=== PATIENT | female | born 1960 | race Caucasian/White ===

== ENCOUNTER 2016-08-21 22:13 | Emergency (ER) | payer OTHER ==
[2016-08-21 19:31] LABS: ASCORBIC ACID (UR NOT ORDER) NEG (NEG); BILIRUBIN, URINE NEGATIVE (NEG); ER URINALYSIS TAT 0 Hrs 11 Mins; KETONE, URINE TRACE MG/DL (NEG); LEUKOCYTE ESTERASE(NOT OR NEG (NEG); NITRITE (URINE) NEG (NEG); WBC (NOT ORDERED) (RFLEX) 3 (0-5)
[2016-08-21 19:39] LABS: BASOPHILS 0.1 %; BASOPHILS ABSOLUTE 0.01 10/3/uL (0.0-0.16); EOSINOPHILS 1.2 %; EOSINOPHILS ABSOLUTE 0.09 10/3/uL (0.0-0.53); ER CBC TAT 0 Hrs 19 Mins; HEMATOCRIT 37.7 % (36.0-48.0); HEMOGLOBIN 12.8 g/dL (12.0-16.0); IMMATURE GRANULOCYTES 0.3 %; IMMATURE GRANULOCYTES ABSOLUTE 0.02 10/3/uL (0.0-0.11); LYMPHOCYTES 37.9 %; LYMPHOCYTES ABSOLUTE 2.83 10/3/uL (0.67-4.30); MANUAL DIFF NO %; MEAN CORPUSCULAR HEMOGLOB 32.9 pg (26.0-34.0); MEAN CORPUSCULAR VOLUME 96.9 fL (80-100); MEAN PLATELET VOLUME 8.9 fL (9.2-13.0); MONOCYTES 7.2 %; MONOCYTES ABSOLUTE 0.54 10/3/uL (0.21-1.20); NEUTROPHILS 53.3 %; NEUTROPHILS ABSOLUTE 3.97 10/3/uL (2.02-8.40); PLATELET COUNT 226 10/3/uL (150-400); RBC DISTRIBUTION WIDTH 12.9 % (12.0-16.0); RED CELL COUNT 3.89 10/6/uL (4.0-5.6); WHITE BLOOD CELLS 7.5 10/3/uL (4.5-10.5)
[2016-08-21 19:43] LABS: A/G RATIO 0.7 (0.7-1.9); ALBUMIN 2.8 G/DL (3.5-5.0); ALKALINE PHOSPHATASE 79 U/L (45-117); BUN (BLOOD UREA NITROGEN) 11 MG/DL (6-23); CALCIUM, SERUM 8.3 MG/DL (8.5-10.4); CHLORIDE, SERUM 107 MMOL/L (96-112); CO2 (CARBON DIOXIDE) 28 MMOL/L (24-34); CREATININE 0.72 MG/DL (0.55-1.02); GFR AFRICAN AMERICAN 110 ML/MIN (>=60); GFR NON AFRICAN AMERICAN 95 ML/MIN (>=60); GLUCOSE, SERUM 84 MG/DL (60-99); POTASSIUM, SERUM 4.1 MMOL/L (3.5-5.3); SGOT(AST) 9 U/L (5-40); SGPT(ALT) 9 U/L (5-65); SODIUM, SERUM 144 MMOL/L (135-148); TOTAL BILIRUBIN 0.4 MG/DL (0-1.2); TOTAL PROTEIN 6.8 G/DL (6.0-8.5)
[~2016-08-21 22:13] MED LIST: ASAB PO; ATV1 PO; LAM250 PO; NORCO1 TA2 PO; ORAZINC110 MG PO; PCET PO; VITC500 PO; ZYRTEC ALLGY10 MG PO; ZYVOXPO PO
[2016-09-25] MEDS ORDERED: CLARIT10 PO (16:19)
== END 2016-08-21 22:57 | disposition home or self-care (01) ==
LOC: ER 22:13
PROVIDERS: Emergency Medicine
DX: G89.29 Other chronic pain (principal); R10.9 Unspecified abdominal pain; Z87.891 Personal history of nicotine dependence; Z88.2 Allergy status to sulfonamides; Z79.82 Long term (current) use of aspirin; Z79.899 Other long term (current) drug therapy
CPT/HCPCS: 80053; 81001; 83690; 85025; 99284

== ENCOUNTER 2016-10-05 11:11 | Inpatient (IN) | payer OTHER ==
--- NOTE | ~2016-10-05 | CN ---
Consultation Report [facility] [address] [place]. [address] NAME: RON LAND : 62 STATUS : DIS IN PAT#: [id number] AGE: 56 ADM/REG DATE : 10/05/16 MR#: [id number] REPORT SERV DATE: 10/14/16 DICTATED BY: BILLY NORRIS DATE: 10/14/16 REPORT STATUS : Draft TRANSCRIBED BY: MODChucho DATE: 10/14/16 GI CONSULTATION NOTE DATE OF CONSULTATION: 10/13/2016 REASON FOR CONSULTATION: Small bowel obstruction. HISTORY OF PRESENT ILLNESS: Ms. Land is a pleasant 56-year-old female with a history of Crohn disease, who is postop day #8 status post exploratory laparotomy with right colon and terminal ileal resection by Dr. Mejias. GI is consulted for followup care as she usually sees Dr. Shelton in our [facility] for her Crohn's management. She is slowly, but surely recovering from her surgery. She is tolerating her diet fairly well and her pain is better controlled as per the patient. With regard to her Crohn's diagnosis, she has not been on any medical therapy for her Crohn disease as she reports that she has had no flare-ups since her diagnosis and had not required any medication. PAST MEDICAL HISTORY: Crohn disease, basal cell carcinoma, ovarian cyst, ventral hernia. PAST SURGICAL HISTORY: Ex lap with right colon and TI resection; ventral hernia repair in 2013; I and D, abdominal wall abscess, 2014. SOCIAL HISTORY: Former tobacco use, quit in 2013. Alcohol use, approximately 12 beers per week. Denies any drug use. FAMILY HISTORY: Coronary artery disease, liver disease, and stroke. MEDICATIONS: Reviewed. ALLERGIES: REVIEWED. PHYSICAL EXAMINATION: VITAL SIGNS: The patient is afebrile. Her vital signs are stable. GENERAL: The patient is awake, alert, and oriented x3. Well developed, well nourished, in no acute distress. HEENT: Atraumatic, normocephalic. Anicteric. Mucous membranes moist. CARDIAC: S1, S2. CHEST: Clear. ABDOMEN: Soft, nontender to palpation. She has a vertical incision with staple line. Incision appears clean, dry, and intact without any erythema or calor associated. Bowel sounds are normoactive. LABORATORY DATA: WBC is 10.8, hemoglobin 9.5, hematocrit 29, platelets 261. Sodium 138, potassium 4.2, chloride 101, BUN 6, creatinine 0.48, glucose 89. Consultation Report [facility] [id number] [place]. [address] NAME: RON LAND : 62 STATUS : DIS IN PAT#: [id number] AGE: 56 ADM/REG DATE : 10/05/16 MR#: [id number] REPORT SERV DATE: 10/14/16 DICTATED BY: BILLY NORRIS DATE: 10/14/16 REPORT STATUS : Draft TRANSCRIBED BY: MODL DATE: 10/14/16 IMPRESSION AND PLAN: Crohn disease. The patient is status post exploratory laparotomy with right colon and terminal ileal resection postop day #8, recovering slowly, able to tolerate a diet. She does admit to flatus and having bowel movements. I have taken the liberty of ordering a viral hepatitis panel as well as QuantiFERON Gold in preparation for perhaps starting some anti-TNF therapy/biologic therapy for induction and maintenance of remission. I reviewed the above plan with the patient and her . Follow up with Dr. Shelton in one to two weeks in clinic. LARA/LESLEY Billy Norris MD / [id number] CC: Denise Brooks M.D.
--- NOTE | ~2016-10-05 | DS ---
Discharge Summary [facility] [address] [place]. [address] NAME: RON FLYNN : 62 STATUS : DIS IN PAT#: [id number] AGE: 56 ADM/REG DATE : 10/05/16 MR#: [id number] REPORT SERV DATE: 10/24/16 DICTATED BY: COLIN MEJIAS DATE: 10/23/16 REPORT STATUS : Draft TRANSCRIBED BY: MODL DATE: 10/23/16 Data Collection from hospitalization DISCHARGE DIAGNOSES: 1. Small bowel obstruction secondary to Crohn's stricture. 2. Ventral hernia. 3. Former smoker. 4. History of basal cell carcinoma. CONSULTATIONS: Shara Ann MD PROCEDURES PERFORMED: 1. Exploratory laparotomy, extended ileocolic resection, extensive adhesiolysis, open ventral hernia repair on 10/06/2016. 2. CT scan of the abdomen and pelvis without contrast on 10/05/2016. PATHOLOGY: Soft tissue, abdomen, ventral hernia repair - hernia sac. Small bowel and cecum resection - active Crohn disease with multiple ulcers, serosal adhesions and stricture formation, intact anastomosis. No granulomas, dysplasia, or carcinoma. Cecum noninvolved, unremarkable appendix, enlarged benign reactive lymph nodes. Lymph nodes, small bowel mesenteric biopsy - benign reactive lymph nodes. MEDICATIONS: Tylenol 1000 mg twice a day as needed, Colace 100 mg daily, Claritin 10 mg daily as needed, Ativan 1 mg at bedtime, Zofran 4 mg every six hours as needed, Percocet 5/325 one tablet every four hours as needed, and MiraLAX powder one packet daily. CONDITION AT DISCHARGE: Stable. DISPOSITION: The patient was discharged home on a full liquid diet with activities as instructed. She would follow up with Dr. Bobby Shelton on 10/28/[address] Colin Mejias on 10/22/2016. HOSPITAL COURSE: This is a 56-year-old female, who I have followed for some time with what appeared to be an intermittent small bowel obstruction. This appeared to be secondary to Crohn's. Treatment options were discussed and it was elected to proceed with surgical intervention. She was admitted to the hospital at this time for further evaluation and treatment. Upon admission, she was taken to the operating room where she underwent the above-mentioned procedure. She tolerated this well, and there were no complications. On postop day #1, she was awake and alert. She said she felt well. Her pain was controlled. NG tube remained in place. We were awaiting bowel function. We were going to attempt clamping the NG tube. Ativan was going to be restarted at bedtime. On 10/09/2016, we encouraged her to use incentive spirometry and mobilize. Pathology had revealed active Crohn's, but no cancer. She said she had slept much better. On 10/10/2016, she had no nausea or vomiting. She did have a bowel movement. IV fluids were stopped. She did complain of some crampy abdominal pain. On 10/12/2016, she still had Discharge Summary [facility] [id number] [place]. [address] NAME: RON FLYNN : 62 STATUS : DIS IN [facility]#: [id number] AGE: 56 ADM/REG DATE : 10/05/16 MR#: [id number] REPORT SERV DATE: 10/24/16 DICTATED BY: COLIN MEJIAS DATE: 10/23/16 REPORT STATUS : Draft TRANSCRIBED BY: LESLEY DATE: 10/23/16 some abdominal cramping. She was slowly improving. Her diet was going to be advanced. The next day, she was seen by Dr. Shara Ann regarding small bowel obstruction. With regard to her Crohn's diagnosis, she has not been on any medical therapy for her Crohn's disease as she reports that she has had no flare ups since her diagnosis and has not required any medications. White blood cell count was 10.8. Creatinine was 0.48. She was recovering slowly from her surgical intervention. She was tolerating her diet. She was passing flatus and having bowel movements. A viral hepatitis panel was ordered as well as a QuantiFERON Gold in preparation for her perhaps starting some anti-TNF therapy/biologic therapy for induction and maintenance of remission. She would follow up with Dr. Shelton in one to two weeks following discharge. Discharge planning was performed. On 10/14/2016, pain was under better control. She was tolerating her diet. She was voiding and having bowel movements. She was ambulatory. Discharge instructions were given. Due to her improved and stable condition, she was discharged home with the above-stated instructions. Information collected by: Lisa Denney I submit the above information as my discharge summary. TG/MODL Colin Mejias M.D. / [id number] CC: Denise Brooks M.D. Camille Sommer, MD
--- NOTE | ~2016-10-05 | OP ---
Record Of Operation [facility] [address] [place]. [address] NAME: RON LAND : 62 STATUS : ADM IN [facility]#: [id number] AGE: 56 ADM/REG DATE : 10/05/16 MR#: [id number] REPORT SERV DATE: 10/06/16 DICTATED BY: COLIN MEJIAS DATE: 10/06/16 REPORT STATUS : Draft TRANSCRIBED BY: MODL DATE: 10/06/16 DATE OF PROCEDURE: 10/06/2016 PREOPERATIVE DIAGNOSES: 1. Small-bowel obstruction. 2. Ventral hernia. POSTOPERATIVE DIAGNOSES: 1. Small-bowel obstruction secondary to Crohn's stricture. 2. Ventral hernia. OPERATIONS PERFORMED: 1. Exploratory laparotomy. 2. Extended ileocolic resection. 3. Extensive adhesiolysis. 4. Open ventral hernia repair. SURGEON: Colin Mejias M.D. ANESTHESIA: General. ESTIMATED BLOOD LOSS: Less than 100 mL. IV FLUIDS: Adequate. INDICATION FOR PROCEDURE: Ms Land is a 56-year-old, I have been following for some time with what looks to be an intermittent small bowel obstruction. To my view, this appeared to be secondary to Crohn's. After discussion with GI, it was felt that surgical management was recommended. She is brought to the operating room today for exploratory laparotomy. FINDINGS: Extensive adhesions. There was a very dilated area of small bowel at the area of the anastomosis. Distal to this, approximately 30 cm, there was a tight stricture just right at the ileocecal valve. We therefore performed an ileocecectomy. DESCRIPTION OF OPERATION: After appropriate sedation, the patient was prepped and draped in proper sterile fashion. A lower midline incision was performed. Subcutaneous tissues were incised down the fascia. Fascia was incised. The peritoneum was incised. Adhesions to the abdominal wall were taken down. There were extensive adhesions throughout. Once we were able to get these down, the lower ventral hernia was reduced, and the hernia sac was excised. A wound protector was then placed. The small bowel was extremely dilated. We were able to dissect the small bowel from the pelvic adhesions, and finally we were able to bring it up. At this point, we were able to visualize the very dilated anastomosis approximately 30 cm proximal to the ileocecal valve. At the ileocecal valve, there was a tight stricture. This appeared to be secondary to Crohn's. At this point, we transected the bowel proximal to the previous anastomosis using a 75 JACIEL stapler. We transected the ascending colon using a 75 JACIEL stapler. The mesentery was then taken down using LigaSure Record Of Operation [facility] [address] [place]. [address] NAME: RON LAND : 62 STATUS : ADM IN PAT#: [id number] AGE: 56 ADM/REG DATE : 10/05/16 MR#: [id number] REPORT SERV DATE: 10/06/16 DICTATED BY: COLIN MEJIAS DATE: 10/06/16 REPORT STATUS : Draft TRANSCRIBED BY: LESLEY DATE: 10/06/16 device, and 3-0 silk stick ties. We then performed a [id number] functional end-to-end ileocolic anastomosis. We placed a posterior layer of 3-0 silk Lembert sutures for alignment. We cut the corners of the staple lines, and then decompressed the small bowel through the cut edge. We then placed a JACIEL stapler through the both lumens, and fired for common enterotomy. We closed the butt end of the common enterotomy using a TA 60 stapler. We placed an anterior layer of 3-0 silk Lembert sutures. We closed the mesentery using 3-0 silk sutures. We then irrigated out the abdomen. We ran the small bowel. There was no evidence of injury. We evaluated the colon. There was no evidence of injury. We then closed the fascia using a running #1 looped PDS. We performed interrupted [id number] #1 Vicryl. The hernia on the inferior aspect was closed primarily using interrupted figure- of-eight Vicryl and running PDS. The wound was irrigated. Van Tassell were placed. The patient was taken to the recovery room in satisfactory condition. THERESE/LESLEY Colin Mejias M.D. / [id number] CC: Denise Brooks M.D.
[2016-10-05 10:40] LABS: BASOPHILS 0.4 %; BASOPHILS ABSOLUTE 0.04 10/3/uL (0.0-0.16); EOSINOPHILS 0.1 %; EOSINOPHILS ABSOLUTE 0.01 10/3/uL (0.0-0.53); ER CBC TAT 0 Hrs 03 Mins; HEMATOCRIT 39.7 % (36.0-48.0); HEMOGLOBIN 13.6 g/dL (12.0-16.0); IMMATURE GRANULOCYTES 1.8 %; LYMPHOCYTES 13.7 %; LYMPHOCYTES ABSOLUTE 1.44 10/3/uL (0.67-4.30); MEAN CORPUS HGB CONC 34.3 g/dL (32.0-36.0); MEAN CORPUSCULAR HEMOGLOB 31.9 pg (26.0-34.0); MEAN PLATELET VOLUME 8.9 fL (9.2-13.0); MONOCYTES 10.7 %; MONOCYTES ABSOLUTE 1.12 10/3/uL (0.21-1.20); NEUTROPHILS 73.3 %; NEUTROPHILS ABSOLUTE 7.69 10/3/uL (2.02-8.40); PLATELET COUNT 293 10/3/uL (150-400); RBC DISTRIBUTION WIDTH 14.3 % (12.0-16.0); RED CELL COUNT 4.27 10/6/uL (4.0-5.6); WHITE BLOOD CELLS 10.5 10/3/uL (4.5-10.5)
[2016-10-05 10:41] LABS: IMMATURE GRANULOCYTES ABSOLUTE 0.19 10/3/uL (0.0-0.11); MANUAL DIFF NO %
[2016-10-05 10:56] LABS: A/G RATIO 0.5 (0.7-1.9); ALBUMIN 2.3 G/DL (3.5-5.0); ALKALINE PHOSPHATASE 95 U/L (45-117); BUN (BLOOD UREA NITROGEN) 21 MG/DL (6-23); CHLORIDE, SERUM 100 MMOL/L (96-112); CO2 (CARBON DIOXIDE) 26 MMOL/L (24-34); CREATININE 0.59 MG/DL (0.55-1.02); GFR AFRICAN AMERICAN 120 ML/MIN (>=60); GFR NON AFRICAN AMERICAN 103 ML/MIN (>=60); GLOBULIN 4.8 G/DL (2.5-4.1); GLUCOSE, SERUM 114 MG/DL (60-99); POTASSIUM, SERUM 3.9 MMOL/L (3.5-5.3); SGOT(AST) 7 U/L (5-40); SGPT(ALT) 8 U/L (5-65); SODIUM, SERUM 136 MMOL/L (135-148); TOTAL BILIRUBIN 0.5 MG/DL (0-1.2); TOTAL PROTEIN 7.1 G/DL (6.0-8.5)
[2016-10-05 11:03] LABS: BAND NEUTROPHILS 26 %; ER DIFF TAT 0 Hrs 26 Mins; IMMATURE GRANS ABSOLUTE (CALC) 0.11 10/3/uL (0.0-0.11); LYMPHOCYTES 11 %; LYMPHOCYTES ABSOLUTE (CALC) 1.16 10/3/uL (0.67-4.30); METAMYELOCYTES 1 %; MONOCYTES 7 %; MONOCYTES ABSOLUTE (CALC) 0.74 10/3/uL (0.21-1.20); NEUTROPHILS ABSOLUTE (CALC) 8.51 10/3/uL (2.02-8.40); SEGMENTED NEUTROPHIL (0) 55 %; TOTAL NUCLEATED CELLS 100
[2016-10-05 11:04] LABS: PLATELET ESTIMATE ADQ (ADEQUATE); RBC MORPHOLOGY NORM (NORMAL)
[~2016-10-05 11:11] MED LIST changes: +CLARIT10 PO
[2016-10-05 11:25] LABS: ASCORBIC ACID (UR NOT ORDER) 20 (NEG); BILIRUBIN, URINE MODERATE (NEG); ER URINALYSIS TAT 0 Hrs 15 Mins; KETONE, URINE 80 MG/DL (NEG); LEUKOCYTE ESTERASE(NOT OR NEG (NEG); NITRITE (URINE) NEG (NEG); WBC (NOT ORDERED) (RFLEX) 2 (0-5)
[2016-10-05] MEDS ORDERED: ACET500CAP PO (13:32)
[2016-10-07 06:41] LABS: CHLORIDE, SERUM 108 MMOL/L (96-112); CO2 (CARBON DIOXIDE) 25 MMOL/L (24-34); CREATININE 0.48 MG/DL (0.55-1.02); GFR AFRICAN AMERICAN 128 ML/MIN (>=60); GFR NON AFRICAN AMERICAN 110 ML/MIN (>=60); POTASSIUM, SERUM 4.5 MMOL/L (3.5-5.3); SODIUM, SERUM 139 MMOL/L (135-148)
[2016-10-07 06:42] LABS: BUN (BLOOD UREA NITROGEN) 7 MG/DL (6-23); CALCIUM, SERUM 7.9 MG/DL (8.5-10.4); GLUCOSE, SERUM 163 MG/DL (60-99)
[2016-10-07 07:20] LABS: BASOPHILS 0.4 %; BASOPHILS ABSOLUTE 0.07 10/3/uL (0.0-0.16); EOSINOPHILS 0 %; IMMATURE GRANULOCYTES 1.4 %; IMMATURE GRANULOCYTES ABSOLUTE 0.23 10/3/uL (0.0-0.11); LYMPHOCYTES 10.6 %; MEAN CORPUS HGB CONC 33.2 g/dL (32.0-36.0); MEAN CORPUSCULAR HEMOGLOB 31.3 pg (26.0-34.0); MEAN CORPUSCULAR VOLUME 94.2 fL (80-100); MEAN PLATELET VOLUME 8.8 fL (9.2-13.0); MONOCYTES 6.7 %; MONOCYTES ABSOLUTE 1.13 10/3/uL (0.21-1.20); NEUTROPHILS 80.9 %; NEUTROPHILS ABSOLUTE 13.76 10/3/uL (2.02-8.40); PLATELET COUNT 268 10/3/uL (150-400); RBC DISTRIBUTION WIDTH 14.6 % (12.0-16.0); RED CELL COUNT 3.45 10/6/uL (4.0-5.6)
[2016-10-07 07:21] LABS: HEMATOCRIT 32.5 % (36.0-48.0); HEMOGLOBIN 10.8 g/dL (12.0-16.0); MANUAL DIFF NO %
[2016-10-08 05:49] LABS: BASOPHILS 0.2 %; BASOPHILS ABSOLUTE 0.02 10/3/uL (0.0-0.16); EOSINOPHILS 0.4 %; EOSINOPHILS ABSOLUTE 0.04 10/3/uL (0.0-0.53); HEMATOCRIT 30.1 % (36.0-48.0); HEMOGLOBIN 9.9 g/dL (12.0-16.0); IMMATURE GRANULOCYTES 1.1 %; IMMATURE GRANULOCYTES ABSOLUTE 0.11 10/3/uL (0.0-0.11); LYMPHOCYTES 20.3 %; MEAN CORPUS HGB CONC 32.9 g/dL (32.0-36.0); MEAN CORPUSCULAR HEMOGLOB 31.4 pg (26.0-34.0); MEAN CORPUSCULAR VOLUME 95.6 fL (80-100); MEAN PLATELET VOLUME 8.8 fL (9.2-13.0); MONOCYTES 7.7 %; MONOCYTES ABSOLUTE 0.76 10/3/uL (0.21-1.20); NEUTROPHILS 70.3 %; NEUTROPHILS ABSOLUTE 6.91 10/3/uL (2.02-8.40); PLATELET COUNT 256 10/3/uL (150-400); RBC DISTRIBUTION WIDTH 14.8 % (12.0-16.0); RED CELL COUNT 3.15 10/6/uL (4.0-5.6)
[2016-10-08 06:01] LABS: MANUAL DIFF NO %; WHITE BLOOD CELLS 9.8 10/3/uL (4.5-10.5)
[2016-10-08 06:08] LABS: CHLORIDE, SERUM 105 MMOL/L (96-112); CREATININE 0.48 MG/DL (0.55-1.02); GFR AFRICAN AMERICAN 128 ML/MIN (>=60); GFR NON AFRICAN AMERICAN 110 ML/MIN (>=60); POTASSIUM, SERUM 3.9 MMOL/L (3.5-5.3); SODIUM, SERUM 143 MMOL/L (135-148)
[2016-10-08 06:11] LABS: BUN (BLOOD UREA NITROGEN) 3 MG/DL (6-23); CO2 (CARBON DIOXIDE) 32 MMOL/L (24-34); GLUCOSE, SERUM 98 MG/DL (60-99)
[2016-10-11 07:06] LABS: BASOPHILS 0.1 %; BASOPHILS ABSOLUTE 0.01 10/3/uL (0.0-0.16); EOSINOPHILS 1.1 %; EOSINOPHILS ABSOLUTE 0.12 10/3/uL (0.0-0.53); HEMOGLOBIN 9.5 g/dL (12.0-16.0); IMMATURE GRANULOCYTES 2.4 %; IMMATURE GRANULOCYTES ABSOLUTE 0.26 10/3/uL (0.0-0.11); LYMPHOCYTES 10.1 %; LYMPHOCYTES ABSOLUTE 1.09 10/3/uL (0.67-4.30); MEAN CORPUS HGB CONC 32.8 g/dL (32.0-36.0); MEAN CORPUSCULAR HEMOGLOB 31.1 pg (26.0-34.0); MEAN CORPUSCULAR VOLUME 95.1 fL (80-100); MONOCYTES 9.5 %; MONOCYTES ABSOLUTE 1.03 10/3/uL (0.21-1.20); NEUTROPHILS 76.8 %; NEUTROPHILS ABSOLUTE 8.28 10/3/uL (2.02-8.40); PLATELET COUNT 261 10/3/uL (150-400); RBC DISTRIBUTION WIDTH 14.3 % (12.0-16.0); RED CELL COUNT 3.05 10/6/uL (4.0-5.6); WHITE BLOOD CELLS 10.8 10/3/uL (4.5-10.5)
[2016-10-11 07:17] LABS: MANUAL DIFF NO %
[2016-10-11 08:27] LABS: BUN (BLOOD UREA NITROGEN) 6 MG/DL (6-23); CALCIUM, SERUM 8.2 MG/DL (8.5-10.4); CHLORIDE, SERUM 101 MMOL/L (96-112); CO2 (CARBON DIOXIDE) 33 MMOL/L (24-34); CREATININE 0.48 MG/DL (0.55-1.02); GFR AFRICAN AMERICAN 128 ML/MIN (>=60); GFR NON AFRICAN AMERICAN 110 ML/MIN (>=60); GLUCOSE, SERUM 89 MG/DL (60-99); POTASSIUM, SERUM 4.2 MMOL/L (3.5-5.3); SODIUM, SERUM 138 MMOL/L (135-148)
[2016-10-14] MEDS ORDERED: ZOFRAN4 PO (11:50)
[2016-10-14] MEDS ORDERED: PCET PO (11:51)
[2016-10-14] MEDS ORDERED: DSS PO (12:00)
[2016-10-14] MEDS ORDERED: MIRALAX POWDER1 PKT PO (12:02)
[2016-10-16 16:21] LABS: HBV DNA QUANT LOG10 VALUE Not Detected (NOTDET); HBV DNA QUANT RESULT Not Detected (NOTDET)
[2016-10-17 14:53] LABS: QUANTIFERON MITOGEN (MG NIL) 0.13 IU/mL (()); QUANTIFERON NIL 0.21 IU/mL (()); QUANTIFERON TB GOLD Indeterminate (NEG); TUBERCULOSIS AG VAL (Ag-Nil) 0.05 IU/mL (<0.35)
== END 2016-10-14 12:53 | disposition home or self-care (01) | DRG 330 ==
LOC: ER 11:11 → 4SO 14:30 → SDC/OF 10-06 09:31 → 5SO 10-06 10:21
PROVIDERS: Colon & Rectal Surgery; Emergency Medicine; Internal Medicine Gastroenterology; Specialist
PROC: 0DBB0ZZ Excision of Ileum, Open Approach (ICD-10-PCS; principal; 2016-10-05)
PROC: 0WQF0ZZ Repair Abdominal Wall, Open Approach (ICD-10-PCS; 2016-10-06)
PROC: 0DN80ZZ Release Small Intestine, Open Approach (ICD-10-PCS; 2016-10-06 05:45)
DX: K50.012 Crohn's disease of small intestine with intestinal obstruction (principal); K43.9 Ventral hernia without obstruction or gangrene
CPT/HCPCS: 74000; 74176; 80048; 80053; 81001; 83605; 83690; 85025; 86480; 87517; 88302; 88305; 88307; 93005; 96374; 96376; 99285; A9270-GY; J0330; J0690; J1170; J2250; J2370; J2405; J2710; J2795; J3010; J3360